=== PATIENT | male | born 1945 | race Two or more races ===

== ENCOUNTER 2024-10-08 20:16 | Day surgery (SDC) | payer MEDICAID, SELFPAY ==
[2024-10-08 20:18] VITALS: BP 139/88; PULSE 81; RESP 22; TEMP 37.2; O2SAT 97
[2024-10-08 20:40] VITALS: BP 149/94; PULSE 86; RESP 16; O2SAT 98
[2024-10-08 20:45] VITALS: BP 166/93; PULSE 112; RESP 18; O2SAT 97
[2024-10-08 20:50] VITALS: BP 156/89; PULSE 110; RESP 22; O2SAT 96
--- NOTE | 2024-10-08 21:12 | SUR.OPER ---
2030 Pt in or 4. Calm and appropriate. Trach removal site clear.
== END 2024-10-08 20:55 | disposition skilled nursing facility (03) ==
LOC: S2EX 10-12 15:24
PROVIDERS: PCP Specialist; Referring Provider Specialist; Visit Provider Specialist
PROC: (CPT 43239; principal; 2024-10-08 20:00)
PROC: 0DH63UZ Insertion of Feeding Device into Stomach, Percutaneous Approach (ICD-10-PCS; CPT 43246; 2024-10-08 20:00)
DX: Z43.1 Encounter for attention to gastrostomy (principal); K20.90 Esophagitis, unspecified without bleeding; K29.70 Gastritis, unspecified, without bleeding
CPT/HCPCS: 43247; J2250